=== PATIENT | female | born 1995 | race Caucasian/White ===

== ENCOUNTER → 2021-11-14 | Outpatient (CLI) | payer BC ==
--- NOTE | 2021-11-14 19:28 | CT ---
EXAMINATION TYPE: CT sinus wo con DATE OF EXAM: 11/14/2021 COMPARISON: None HISTORY: h/o congestion, drainage CT DLP: 599.8 mGycm. Automated Exposure Control for Dose Reduction was Utilized. TECHNIQUE: CT scan of the sinuses is performed without contrast, axial images are obtained, coronal r eformatted images are also reviewed. FINDINGS: The paranasal sinuses including the frontal, ethmoid, sphenoid, and maxillary sinuses bila terally are well-aerated minimal ethmoidal opacification. The ostiomeatal complex is patent bilatera lly on the coronal images. Slight nasal septal deviation noted. Visualized portion of mastoid air cells show no abnormal opacification. The globes are intact bilate rally. IMPRESSION: 1. Minimal chronic ethmoidal sinusitis 2. The ostiomeatal complex is patent bilaterally. 3. Slight nasal septal deviation.
== END | disposition home or self-care (01) ==
LOC: RADCTMAIN 18:18
PROVIDERS: ATTEND Otolaryngology
DX: J32.2 Chronic ethmoidal sinusitis (principal); J34.2 Deviated nasal septum
CPT/HCPCS: 70486